=== PATIENT | male | born 1945 | race Caucasian/White ===

== ENCOUNTER → 2019-01-19 | Outpatient (CLI) | payer OTHER, MEDICARE ==
[~2019-01-19] MED LIST: DOCU100C56 PO; GLUC500C29 PO; [UNRECOGNIZED DRUG - CODE] PO; [UNRECOGNIZED DRUG - CODE] PO; [UNRECOGNIZED DRUG - CODE] PO; [UNRECOGNIZED DRUG - CODE] PO
--- NOTE | 2019-01-19 10:53 | RADIOLOGY IMAGING REPORT ---
FACILITY: [facility] - [place], [place] PATIENT NAME: Jason Guillen : 1945 MR: [id number] V: [id number] EXAM DATE: ORDERING PHYSICIAN: RYDER KLINE TECHNOLOGIST: Location: [facility] [place] Patient: Jason Guillen : 1945 Visit/Account:[id number] Date of Sevice: 01/19/2019 CHEST PA LAT Indication: Cough for a couple of weeks. Comparison: None Findings: Lungs: Mild prominence of the interstitial markings of both lungs are seen. There is no focal airspac e opacity. Mediastinum/pulmonary vasculature: Heart size and pulmonary vasculature are normal. Bones/soft tissues: Normal. IMPRESSION: 1. Prominent interstitial markings, consistent with mild interstitial lung changes. 2. No acute airspace opacity or pneumonia. Report Dictated By: Pacheco Singleton at 01/19/2019 10:48 AM Report E-Signed By: Pacheco Singleton at 01/19/2019 10:49 AM WSN:[id number]
== END ==
LOC: RAD 10:18
PROVIDERS: ATTEND Family Medicine
DX: R04.2 Hemoptysis (principal)
CPT/HCPCS: 71046